=== PATIENT | male | born 2005 | race Caucasian/White ===

== ENCOUNTER 2025-05-24 15:20 | Emergency (ER) | payer OTHER ==
[~2025-05-24 15:20] MED LIST: Iopamidol 300 61% 100 ML VIAL FS ONE
[2025-05-24] MEDS ORDERED: Ketorolac Tromethamine 30 MG (1 mL) VIAL ONE (16:22)
[2025-05-24] MEDS ORDERED: Ondansetron PF 4 MG/2 ML Vial ONE ×2 (16:22→18:43)
[2025-05-24] MEDS ORDERED: Famotidine/PF 20 mg/2ml Vial ONE (16:22)
[2025-05-24 16:28] LABS: #Basophils 0.06 10x3/uL (0.0-0.2); #Eosinophils 0.41 10x3/uL (0.0-0.5); #Monocytes 2.53 10x3/uL (0.0-1.1); #Neutrophils 12.78 10x3/uL (1.5-8.4); %Basophils 0.3 % (0.0-2.0); %Eosinophils 2.2 % (0.0-6.0); %Lymphocytes 13.3 % (18.0-47.0); %Monocytes 13.8 % (0.0-10.0); %Neutrophils 70.1 % (40.0-75.0); Hematocrit 40.7 % (38.8-50.0); Hemoglobin 14.1 g/dL (13.5-17.5); Mean Corpuscular Hemoglobin 30.5 pg (27.0-33.0); Mean Corpuscular Volume 87.9 fL (81.2-95.1); Platelet Count 251 10x3/uL (150-450); Red Blood Cell (RBC) Count 4.63 10x6/uL (4.32-5.72); White Blood Cell (WBC) Count 18.27 10x3/uL (3.5-10.5)
[2025-05-24 16:29] LABS: ALT (SGPT) 11 U/L (Less than 45); AST (SGOT) 25 U/L (11-34); Albumin 4.8 g/dL (3.1-4.5); Alkaline Phosphatase 81 U/L (50-130); Anion Gap 14 mmol/L (10-20); BUN (Urea Nitrogen) 18 mg/dL (8.4-21.0); Bilirubin, Total 1.1 mg/dL (0.3-1.2); Calc. Creatinine Clearance 0 mL/min (70-130); Calcium 9.3 mg/dL (7.8-10.44); Carbon Dioxide 24 mmol/L (22-29); Chloride 104 mmol/L (98-107); Globulin 2.7 g/dL (2.4-3.5); Glucose 113 mg/dL (70-105); Lipase 17 U/L (8-78); Potassium 3.6 mmol/L (3.5-5.1); Sodium 138 mmol/L (136-145)
[2025-05-24 18:04] LABS: Glucose, Urine (Dipstick) Normal (Negative); Leukocyte Negative (Negative); Protein, Urine (Dipstick) 30 mg/dl (Neg-Trace); Specific Gravity, Urine 1.010 (1.005-1.030)
[2025-05-24 18:12] LABS: Cocaine Metabolite Screen Negative (Negative); THC/Cannabinoid Screen Negative (Negative); Tricyclic Screen Negative (Negative)
[2025-05-24 18:40] LABS: Bacteria/HPF 2+ HPF (None Seen); CAUTI Indications for Culture Dysuria,urgency,freq; RBC/HPF None Seen HPF (0-3); WBC/HPF 0-3 HPF (0-3)
[2025-05-24 18:41] LABS: Mucous/LPF 1+ LPF (<2+)
[2025-05-24 18:42] LABS: Urine Culture Reflex No No
[2025-05-24] MEDS ORDERED: PROPOFOL 20 ML ONE (18:42)
[2025-05-24] MEDS ORDERED: Rocuronium Bromide 10 MG/ML (10ML VIAL) ONE (18:43)
[2025-05-24] MEDS ORDERED: Lidocaine 1% PF 5 ML VIAL ONE (18:43)
[2025-05-24] MEDS ORDERED: SUGAMMADEX SODIUM 200 MG/2 ML VIAL ONE (18:43)
[2025-05-24] MEDS ORDERED: Bupivacaine/Epinephrine 0.25% 30 ML VIAL ONE (18:47)
[2025-05-24] MEDS ORDERED: SUCCINYLCHOLINE/SOD CL,ISO/PF 200 MG/10 ML SYRINGE FS ONE (19:21)
[2025-05-24] MEDS ORDERED: HYDROcodone/Acetaminophen 5/325 mg Tablet ONE (20:57)
== END 2025-05-24 21:11 | disposition home or self-care (01) ==
LOC: CSHERS 15:20
PROC: 0DTJ4ZZ Resection of Appendix, Percutaneous Endoscopic Approach (ICD-10-PCS; principal; 2025-05-24)
DX: K35.80 Unspecified acute appendicitis (principal); Z90.89 Acquired absence of other organs
CPT/HCPCS: 36416; 74177; 80053; 80306; 80307; 81001; 83690; 85025; 88304; 93005; 94760; 96374; 96375; A4649; C1776; J1100; J1308; J1885; J2250; J2405; J2543; J2704; J3010; Q9967